=== PATIENT | female | born 2005 | race Two or more races ===

== ENCOUNTER 2024-10-16 13:18 | Emergency (ER) | payer MEDICAID, SELFPAY ==
--- NOTE | 2024-10-16 13:28 | XR_ITS ---
EXAMINATION: XR ankle comp LT min 3V ORDERING PROVIDER: JOSE Huff HISTORY: Ankle pain TECHNIQUE: 4 radiographs of the left ankle were obtained. COMPARISON: None. FINDINGS: There is a displaced fracture of the medial malleolus. Additional, displaced fracture of the distal fibula at the level of the syndesmosis is identified. There is asymmetric widening of the medial ankle mortise. Talar dome is intact. Moderate soft tissue swelling about the ankle. Widened medial clear space. Ankle joint effusion. IMPRESSION: 1. Rojas B fracture. 2. Displaced medial malleolus fracture. 3. Widened medial clear space and asymmetry of the ankle mortise.
--- NOTE | 2024-10-16 13:30 | EDNOTE_ITS ---
<Statement entered by Elsy Grigsby MD - 10/16/24 16:08> As co-signing physician, I was present and available for consult prn. I concur with the plan and care as documented by the midlevel provider. ED General RME/HPI General Chief complaint: Ankle/Foot Injury Stated complaint: LEFT ANKLE INJURY Time Seen by Provider: 10/16/24 13:28 Arrival date/time: 10/16/24 13:18 RME / HPI RME / HPI narrative: 19-year-old female patient came in with EMS for evaluation regarding left ankle injury. Patient accidentally twisted her left ankle, resulting in the pain and swelling, severity mild. Patient is refusing to ambulate due to pain. Denies any other injury. Incident happened earlier today. Patient was given fentanyl IV by EMS. X-ray of the left ankle showed bimalleolar fracture. Cardiac splint applied. Distal neurovascular status intact post splinting. Patient supplied with crutches. Patient was referred to Dr. Hall, orthopedic surgeon on-call, for definitive management of the fractures. Thank you Dr Hall Patient appears nontoxic and hemodynamically stable. Patient discharged home and instructed to follow-up with primary care provider in 24 to 48 hours. Instructed to return to the emergency department immediately if worsening of symptoms Related Data Previous Rx's ?Medication ?Instructions ?Recorded ketorolac 10 mg tablet 10 mg PO TID PRN pain 5 days #20 10/16/24 tabs Allergies Allergy/AdvReac Type Severity Reaction Status Date / Time No Known Allergies Allergy Verified 10/16/24 13:46 Review of Systems Review of Systems Narrative Review of Systems: Review of system reviewed and within normal limits except mentioned in HPI ED Exam Narrative Physical exam: VITAL SIGNS: Reviewed. GENERAL APPEARANCE: Alert and interactive, follows commands, no acute distress, HEAD AND FACE: Non-traumatic. ENT: PERRL, pink conjunctivitis, eyelid no trauma, Mucous membrane moist. NECK: Supple, nontender, no nuchal rigidity. CHEST: No tenderness, no crepitus, no paradoxical movement, no retractions. LUNGS: Clear, well ventilated, symmetric, no rales, no wheezing, no ronchi, no stridor, good breath sounds bilaterally. HEART: Regular rate, regular rhythm, no murmur, no gallops. ABDOMEN: Soft, positive bowel sounds, nondistended, no guarding, nontender, no rebound, no masses, RECTAL: Deferred. GENITAL: Deferred. NEUROLOGICAL: Gross motor function intact sensory function intact, Appropriate for age. MUSCULOSKELETAL: low back nontender, full range of motion. EXTREMITIES: Left ankle swelling, with tenderness, no deformity limitation range of motion. SKIN: Color pink, dry, no rash, no lacerations, no abrasions, no contusions. LYMPHATICS: Deferred. Course Quality Measures none Orders Category Date Time Status Crutches .NOW Care 10/16/24 14:55 Active Splint / Immobilizer STAT Care 10/16/24 14:55 Active XR ankle comp LT min 3V Stat Exams 10/16/24 13:28 Taken Ketorolac Inj [Toradol Inj] Med 10/16/24 15:15 Once 30 mg IM X1 ONE Vital Signs Vital signs: Vital Signs Temperature 97.8 F 10/16/24 13:45 Pulse Rate 68 10/16/24 13:45 Respiratory Rate 16 10/16/24 13:45 Blood Pressure 120/76 10/16/24 13:45 Pulse Oximetry (%) 100 10/16/24 13:45 Oxygen Delivery Method Room Air 10/16/24 13:45 [facility] Patient data External records reviewed:: None Clinical information provided by:: patient Social determinants that could affect healthcare access:: none Patient has the following chronic illnesses:: None How is presenting disease/condition affected by chronic disease/condition?: no chronic disease Evaluation data The following diagnostics were reviewed and interpreted by me:: radiology exam(s) Lab and/or radiology exams considered but not ordered:: None Interpretation Summary: X-ray of the left lower leg showed bimalleolar fracture, no dislocation of the ankle noted Medications Medications considered but not ordered:: None Medication administrations:: Medication Administration History Ketorolac Tromethamine (Ketorolac Inj 60 Mg/2 Ml Vial) 30 mg IM X1 ONE; Protocol Stop: 10/16/24 15:16 Toradol IM Consultations Consultation(s) initiated? (list below): Yes Consultation #1 (Physician, Specialty, Details): Dr Hall orthopedic surgeon: Diagnosis Differential Diagnosis ED Complaint MDM: Ankle fracture ankle dislocation, ankle sprain Most likely diagnosis given after review of the tests above:: Bimalleolar ankle fracture Admission Indicated Admission indicated?: not indicated Explain why admission is indicated or not indicated:: None Admission Request Was there a request for admission?: No Disposition Plan Disposition Plan: Discharge Discharge Attestation Discharge Attestation: The patient was given an opportunity to ask questions and understood the discharge instructions. Discharge instructions specifically effects, indications for sooner follow up or return to the emergency department, and the expected course of current diagnosis. Patient condition: Stable Medical Decision Making MDM Narrative MDM Narrative: 19-year-old female patient came in with EMS for evaluation regarding left ankle injury. Patient accidentally twisted her left ankle, resulting in the pain and swelling, severity mild. Patient is refusing to ambulate due to pain. Denies any other injury. Incident happened earlier today. Patient was given fentanyl IV by EMS. Differential Diagnosis Differential Diagnosis: Ankle fracture ankle dislocation, ankle sprain Discharge Plan Plan Patient Disposition: HOME (Self Care) Disposition Comment: stable Prescriptions/Referrals Prescriptions/Med Rec: New ketorolac 10 mg tablet 10 mg PO TID PRN (Reason: pain) 5 Days Qty: 20 0RF Referrals: No Primary/Family,Physician [Primary Care Provider] - In 1 week Juarez Hall MD [Physician] - In 1 week (Please call ahead for appointment) Problem List Clinical Impression: Bimalleolar ankle fracture Patient/Caregiver Discharge Instructions Education Materials: ED Ankle Fracture Additional Instructions: Thank you for the opportunity for serving you today. You are stable for discharged . You are advised to: Follow-up with Dr Hall orthopedic surgeon in 1 to 2 days, please call ahead for appointment Return to ED for worsening of symptoms Increase oral fluids Take medication as prescribed Nonweightbearing to the extremity as needed Do not remove the splint until seen by orthopedic surgeon Print Language: Tajik Stand Alone Forms: Lesvia Award Info., Patient Portal Info Letter PA/JOSE Supervising Physician NEVA/JOSE Supervising Physician: MD Seb
[2024-10-16 13:41] VITALS: PULSE 86; RESP 18; O2SAT 98
[2024-10-16 13:44] VITALS: BMI 26.5
[2024-10-16 13:45] VITALS: BP 120/76; PULSE 68; RESP 16; TEMP 36.6; O2SAT 100
[2024-10-16] MEDS: KETOROLAC INJ 60 MG/2 ML VIAL 30 MG IM (15:13)
== END 2024-10-16 16:41 | disposition home or self-care (01) ==
PROVIDERS: Emergency Provider Emergency Medicine
DX: S82.842A Displaced bimalleolar fracture of left lower leg, initial encounter for closed fracture (principal); X50.1XXA Overexertion from prolonged static or awkward postures, initial encounter
CPT/HCPCS: 29515; 73610; 99283; J1885